=== PATIENT | male | born 1970 | race Caucasian/White ===

== ENCOUNTER 2019-05-28 20:39 | Emergency (ER) | payer OTHER ==
[~2019-05-28] VITALS: Ht 180.3 cm; Wt 102.1 kg
[~2019-05-28 20:39] MED LIST: BYSTOLIC5 MG; DIOVAN160 M1
[2019-05-28] MEDS ORDERED: BENICAR40 MG PO (20:48)
== END 2019-05-28 23:42 | disposition home or self-care (01) ==
LOC: ER 20:39
DX: K29.00 Acute gastritis without bleeding (principal); R10.13 Epigastric pain

== ENCOUNTER 2020-03-28 16:03 | Outpatient (CLI) | payer OTHER ==
[~2020-03-28 16:03] MED LIST changes: +BENICAR40 MG PO
== END 2020-03-28 16:16 | disposition home or self-care (01) ==
LOC: RAD 16:03
PROVIDERS: ATTEND Chiropractor Sports Physician
DX: I10 Essential (primary) hypertension (principal)

== ENCOUNTER 2022-02-24 21:12 | Emergency (ER) | payer OTHER ==
[~2022-02-24] VITALS: Ht 182.9 cm; Wt 106.6 kg
== END 2022-02-25 00:10 | disposition home or self-care (01) ==
LOC: ER 21:12
DX: B34.9 Viral infection, unspecified (principal); I10 Essential (primary) hypertension; Z20.822 Contact with and (suspected) exposure to COVID-19

== ENCOUNTER 2025-03-04 08:01 | Emergency (ER) | payer OTHER ==
[~2025-03-04] VITALS: Ht 182.9 cm; Wt 103.4 kg
[2025-03-04] MEDS ORDERED: ONDANSETRON HCL 2 MG/ML VIAL IV ONE (09:00)
[2025-03-04] MEDS ORDERED: FAMOtidine 10 MG/ML (4ML VIAL) IV PUSH ONE (09:00)
[2025-03-04] MEDS ORDERED: 0.9 % SODIUM CHLORIDE 1,000 ML IV ONE (09:00)
[2025-03-04] MEDS ORDERED: FAMOTIDINE/PF 20 MG/2 ML VIAL ONE (09:02)
[2025-03-04] MEDS ORDERED: ONDANSETRON HCL 2 MG/ML VIAL ONE (09:02)
[2025-03-04 09:11] LABS: BASO % 0.3 % (0.1-1.2); EOS # 0.08 (0.04-0.54); EOS % 0.7 % (0.7-7.0); LYMPH # 0.38 (1.18-3.74); LYMPH % 3.4 % (19.3-53.1); MEAN PLATELET VOLUME 8.60 fl (9.4-12.4); MONO # 0.26 (0.24-0.82); MONO % 2.3 % (4.7-12.5); NEUT # 10.36 (1.56-6.13); NEUT % 92.9 % (34.0-71.1); RED CELL DISTRIBUTION WIDTH 13.1 % (11.6-14.4)
[2025-03-04 09:38] LABS: ALT/SGPT 44.0 U/L (12-78); AST/SGOT 19.0 U/L (15-37); BILIRUBIN TOTAL 0.59 mg/dL (0.3-1.2); BUN CREA RATIO 20.0 (7.0-25.0); CREATININE SERUM 1.09 mg/dL (0.70-1.30); GFR 70.76; GLOBULINA 3.4 G/DL (2.4-3.5); GLUCOSE FASTING 160.0 mg/dL (65-100); OSMOLALITY SERUM 290.0 MOSM/KG (275-295)
== END 2025-03-04 10:34 | disposition home or self-care (01) ==
LOC: ER 08:02
PROVIDERS: General Practice
DX: K29.70 Gastritis, unspecified, without bleeding (principal); R11.10 Vomiting, unspecified; I10 Essential (primary) hypertension